=== PATIENT | female | born 2000 | race Caucasian/White ===

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

== ENCOUNTER 2020-11-27 20:37 | Emergency (ER) | payer BC ==
[2020-11-27] MEDS ORDERED: predniSONE 20 MG Tab PO ONE (21:16)
[2020-11-27] MEDS ORDERED: Famotidine 20 MG Tab PO ONE (21:17)
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
[2020-11-27 21:31] VITALS: BP 119/69; PULSE 113
[2020-11-27] MEDS ORDERED: diphenhydrAMINE 25 MG Cap PO ONE (21:47)
== END 2020-11-27 22:17 | disposition home or self-care (01) ==
LOC: JP.ED 20:37
DX: T78.2XXA Anaphylactic shock, unspecified, initial encounter (principal); E03.9 Hypothyroidism, unspecified; Z79.899 Other long term (current) drug therapy; Z88.1 Allergy status to other antibiotic agents; Z91.040 Latex allergy status; Z91.048 Other nonmedicinal substance allergy status
CPT/HCPCS: 99285; A9270; J7512

== ENCOUNTER 2021-07-03 02:35 | Emergency (ER) | payer BC ==
[2021-07-03 03:10] VITALS: BP 123/87; PULSE 97
[2021-07-03] MEDS ORDERED: Prochlorperazine 10 MG/2 ML SDV IVPUSH ONE (03:18)
[2021-07-03] MEDS ORDERED: Lactated Ringers 1,000 ML IV ONE (03:18)
[2021-07-03] MEDS ORDERED: diphenhydrAMINE 50 MG/ML SDV IVPUSH ONE (03:19)
[2021-07-03] MEDS ORDERED: Ketorolac 30 MG/ML SDV IVPUSH ONE (03:19)
== END 2021-07-03 04:43 | disposition home or self-care (01) ==
LOC: JP.ED 02:35
DX: G43.009 Migraine without aura, not intractable, without status migrainosus (principal); E03.9 Hypothyroidism, unspecified; Z79.899 Other long term (current) drug therapy; Z88.1 Allergy status to other antibiotic agents; Z91.040 Latex allergy status; Z91.018 Allergy to other foods
CPT/HCPCS: 96374; 96375; 99283; 99284; J0780; J1200; J1885; J7120

== ENCOUNTER 2021-12-12 19:43 | Emergency (ER) | payer BC ==
[2021-12-12 20:04] VITALS: BP 127/84; PULSE 78
[2021-12-12 20:37] LABS: ESTIMATED GFR 94 mL/min (>60); TROPONIN I HIGH SENSITIVITY 5.4 pg/mL (<=60.3)
== END 2021-12-12 22:47 | disposition home or self-care (01) ==
LOC: JP.ED 19:43
DX: R07.89 Other chest pain (principal); E03.9 Hypothyroidism, unspecified; Z88.1 Allergy status to other antibiotic agents; Z91.040 Latex allergy status; Z88.8 Allergy status to other drugs, medicaments and biological substances; Z79.899 Other long term (current) drug therapy; Z87.891 Personal history of nicotine dependence
CPT/HCPCS: 36415; 71046; 71046-26; 80053; 84484; 85025; 85379; 93005; 93010; 99282; 99285-25

== ENCOUNTER 2022-09-26 05:20 | Emergency (ER) | payer OTHER, BC ==
[2022-09-26 05:39] VITALS: BP 124/88; PULSE 124
== END 2022-09-26 06:42 | disposition home or self-care (01) ==
LOC: JP.ED 05:20
DX: S89.91XA Unspecified injury of right lower leg, initial encounter (principal); K21.9 Gastro-esophageal reflux disease without esophagitis; Z88.8 Allergy status to other drugs, medicaments and biological substances; Z88.1 Allergy status to other antibiotic agents; Z91.040 Latex allergy status; Z79.899 Other long term (current) drug therapy; W00.0XXA Fall on same level due to ice and snow, initial encounter; Y92.481 Parking lot as the place of occurrence of the external cause; Y92.89 Other specified places as the place of occurrence of the external cause; Y99.0 Civilian activity done for income or pay
CPT/HCPCS: 73562-26-RT; 73562-RT; 99283; 99284

== ENCOUNTER 2022-10-05 05:21 | Emergency (ER) | payer BC, OTHER ==
[2022-10-05 05:37] VITALS: BP 113/80; PULSE 88
[2022-10-05] MEDS ORDERED: Lidocaine 2% Viscous Solution 15 ML UD PO ONE (06:29)
[2022-10-05 06:44] LABS: CORONAVIRUS COVID-19 NAA NEGATIVE (NEGATIVE)
== END 2022-10-05 06:56 | disposition home or self-care (01) ==
LOC: JP.ED 05:21
DX: J02.9 Acute pharyngitis, unspecified (principal); Z91.040 Latex allergy status; Z88.1 Allergy status to other antibiotic agents; Z88.8 Allergy status to other drugs, medicaments and biological substances; Z20.822 Contact with and (suspected) exposure to COVID-19
CPT/HCPCS: 0241U; 87081; 87880-QW; 99283; A9270-GY